=== PATIENT | female | born 1970 | race Caucasian/White ===

== ENCOUNTER → 2016-08-14 | Outpatient (CLI) | payer BC, MEDICARE, MEDICAID ==
[~2016-08-14] MED LIST: ASPI1TAB69 PO; CEFD300C PO; CHOL1CAP14 PO; GLUCTAB PO; LEXA10TA PO; METF1000 PO; OMEG100010 PO; OMEGCAP21 PO; PERC5TAB12 PO; PRAV40TA2 PO
[2016-08-14 11:32] LABS: BACTERIA, URINE OCC /hpf; BLOOD, URINE NEG (NEG); GLUCOSE,URINE NEG (NEG); KETONE, URINE NEG (NEG); NITRITE,URINE NEG (NEG); PH, URINE 6.5 (5.0-8.5); SQUAMOUS EPITHELIAL CELL URINE 1 /hpf (0-5); URINE COLOR LIGHT-YELLOW (YELLW/STRAW)
[2016-08-14 11:35] LABS: HEMATOCRIT 46.2 % (35.0-46.0); MEAN CELL VOLUME 88.5 FL (80.0-100.0); MEAN CORPUSCULAR HEMOGLOBIN 29.7 PG (27.0-34.0); MEAN CORPUSCULAR HGB CONC 33.5 % (32.0-36.0); PLATELET COUNT 235 TH/MM3 (150-450); RED BLOOD COUNT 5.23 MIL/MM3 (4.00-5.30); RED CELL DISTRIBUTION WIDTH 13.4 % (11.6-17.2); REVIEW FLAG FINAL; WHITE BLOOD COUNT 9.8 TH/MM3 (4.0-11.0)
[2016-08-14 12:09] LABS: BICARBONATE 28.3 MEQ/L (21.0-32.0)
--- NOTE | 2016-08-15 22:00 | EKG ---
Date Performed: 08/14/2016 Time Performed: 10:27:49 PTAGE: 45 years EKG: Sinus rhythm NORMAL ECG NO PREVIOUS TRACING DOCTOR: Kareem Holden Interpretating Date/Time 08/15/2016 22:00:01
== END ==
LOC: CPRE 09:55
PROVIDERS: ATTEND Plastic Surgery
DX: Z01.810 Encounter for preprocedural cardiovascular examination (principal); Z01.812 Encounter for preprocedural laboratory examination; L73.2 Hidradenitis suppurativa
CPT/HCPCS: 36415; 80051; 81001; 85027; 93005

== ENCOUNTER → 2016-08-20 | Day surgery (SDC) | payer BC, OTHER ==
--- NOTE | 2016-08-19 17:00 | MH ---
cc: JEANIE THAKUR DATE OF ADMISSION: 08/20/2016 DATE OF 1970 CHIEF COMPLAINT Left axillary and left inguinal new areas of hidradenitis patient desiring elective excision. HISTORY This is a 45-year-old white female who has chronic hidradenitis involving multiple body areas; both axilla, both groin, partly. Perineum, etc. she has undergone multiple surgeries over past several years starting back in 2011 with me and prior to that she also had other surgeries. Most of the areas have healed well. Currently she has multiple small active areas involving the left axilla and groin for a few months and she is now ready to go ahead with the further surgery. She understands the overall process very well. Having done it several times already, she is prepared to accept the possibility of open wounds or poor wound healing after the surgery and to treat the areas with secondary wound care if needed. She also understands the possibility of general risk and complications such as those from the anesthesia. The deep venous thrombosis in the legs, respiratory issues, etc. from anesthesia and from surgical site active bleeding, infection, need for multiple surgeries and damage to the surrounding tissues and structures in the area of surgery including numbness to the surrounding skin or genital region. The patient is moderately overweight. She has a history of the diabetes gestational but no active diabetes. No history of high blood pressure or cardiac problems. No major ongoing medical problems. PAST SURGICAL HISTORY: history of surgery include; the multiple surgeries for the hidradenitis. She also had a bleeding, intestinal polyp removed in the past. The patient does not have any chronic issues with lymph nodes or skin rashes or any main deficiency problems. CURRENT MEDICATIONS: 1. Metformin for type 2 diabetes. 2. Lexapro for depression. 3. in the past. 4. Fish oil 5. Vitamins. REVIEW OF SYSTEMS review of systems is otherwise negative for any to change of health. Her weight is in the 200 pound range, she is 5 feet 1 inch tall. PHYSICAL EXAMINATION: VITAL SIGNS: Examination shows a 45-year-old white female with stable vital signs. IN GENERAL: The patient is alert, cooperative, fully oriented. She is emotionally stable, ambulates by herslef. HEAD/NECK: Shows clear sclerae, the trachea is in midline. No gross thyromegaly. CHEST: Chest has good expansion with normal breathing normal breath sounds. HEART: Normal heart sounds. No murmurs. EXTREMITIES: The upper and lower extremities are grossly intact. There is no lymphedema or significant varicose problems in the lower extremities. BREASTS: The breasts were not examined. DIRECTED EXAMINATION: Local examination of the axilla and the groin area show on the left side small active draining glands with small amount of purulent discharge and moderate inflammation overall the areas are somewhat in a linear configuration and there may be able to be excised by combining them all in a single excision and local advancement closure may be attempted. The patient understands that near the groin crease in particular. Normal daily hygiene and movement may subject the area to wound dehiscence. The Genitals are otherwise normal. The perineal and perianal area are also clean. IMPRESSION/PLAN: clinical impression is chronic hidradenitis with acute flare-up on the left axilla and left groin plan is to excise the areas completely and provide local closure with local advancement if possible, otherwise leave the wounds open to secondary healing. signed, not fully reviewed MD NEGRO Mcconnell/aislinn /4:29 PM /4:48 PM MTDAndra
[~2016-08-20] VITALS: Ht 154.9 cm; Wt 83.4 kg
[~2016-08-20] MED LIST changes: +*HYDROmorphone PF 1 MG VIAL PERIprocedural Use ONLY ONE; +ACETAMINOPHEN/HYDROcodone 325 MG/7.5 MG TAB ONE; +ACETAMINOPHEN/HYDROcodone 325 MG/7.5 MG TAB PO ONE; +BACITRACIN TOP OINT 15 GM TUBE ONE; +CHLORHEXIDINE GLUCONATE 2 % 1 PACK (2 CLOTHS) TOPICAL PRN; +DEXAMETHASONE SOD PHOS 4 MG/ML VIAL ONE; +FAMOTIDINE 20 MG/2 ML VIAL ONE; -GLUCTAB PO; +HYDROmorphone HCL PF 1 MG/ML VIAL IV PRN; +INSULIN HUMAN REGULAR 1,000 UNITS/10 ML VIAL SQ PRN; +LACTATED RINGER'S 1000 ML IV PRN; -LEXA10TA PO; +LIDOCAINE 1%/EPINEPHrine 1:100,000 SOLN 50 ML VIAL ONE; +METOPROLOL TARTRATE 25 MG TAB PO PRN; +MIDAZOLAM HCL 2 MG/2 ML VIAL ONE; -OMEGCAP21 PO; +ONDANSETRON HCL 4 MG/2 ML VIAL IV PUSH ONE; -PERC5TAB12 PO; +POVIDONE IODINE 5% (ANTISEPSIS KIT) 4 APPLICATIONS EACH NARE PRN; +PROPOFOL 200 MG/20 ML AMP IV ONE; +SODIUM CHLORID 0.9% 500 ML IV PRN; +oxyCODONE/ACETAMINOPHEN 7.5 MG/325 MG TAB PO PRN
[2016-08-20 09:14] VITALS: BP 132/80; PULSE 80; RESP 20; TEMP 98.2; O2SAT 97
[2016-08-20 13:33] VITALS: BP 150/88; PULSE 80; RESP 18; TEMP 98; O2SAT 98
--- NOTE | 2016-08-21 22:15 | MP ---
cc: JEANIE SHULTZ DATE OF SURGERY 08/20/16 PREOPERATIVE DIAGNOSES Multiple hidradenitis, active areas on the left axilla, left groin and suprapubic. POSTOPERATIVE DIAGNOSIS Multiple hidradenitis, active areas on the left axilla, left groin and suprapubic. OPERATION Excision multiple hidradenitis area left axilla, groin and suprapubic. SURGEON Dr. Shultz ANESTHESIA General. INDICATIONS A 45-year-old white female with chronic hidradenitis, multiple previous surgeries, multiple areas of surgeries, most of them have healed. Recurrent areas include left axilla and approximately 5 new spots both on the arm side and on the chest wall side. The original surgical scar is actually well-healed. The left groin shows one area close to the junction of the previous inguinal crease and one on the side of the left labia. They are small multiple areas that can be excised in one confluent excision. The one on the suprapubic mons area is in the crease within the mons area. Again, this one is the most active area with some purulence. The patient understands that pros, cons, risks and complications and is willing to go ahead with the surgery. PROCEDURE The patient was brought to the operating room, supine position. Anesthesia was induced. Prep and drape was done. A time-out was called and completed. The antibiotics are not given because the patient is allergic to most of the common antibiotics. The areas were outlined and injected with tumescent mixture of lidocaine with epi and saline. They were excised directly to the underlying normal fat. Hemostasis was completed. Closure was done loosely with inverting Vicryl sutures. The areas near the labia and the groin were only sutured internally, once in the axilla, it was sutured both with Vicryl and Prolene. Intraoperative blood loss minimal, less than 10 cc. Sterile dressing was applied. The patient remained stable. No complications. signed, not fully reviewed MD NEGRO Mcconnell/FANNY /12:40 PM /9:51 PM [facility]
== END | disposition home or self-care (01) ==
LOC: HSDC 08:26
PROVIDERS: ATTEND Plastic Surgery
DX: L73.2 Hidradenitis suppurativa (principal); E11.9 Type 2 diabetes mellitus without complications; F32.9 Major depressive disorder, single episode, unspecified; E78.5 Hyperlipidemia, unspecified; E66.9 Obesity, unspecified; F17.200 Nicotine dependence, unspecified, uncomplicated; Z79.84 Long term (current) use of oral hypoglycemic drugs; Z88.1 Allergy status to other antibiotic agents; Z68.34 Body mass index [BMI] 34.0-34.9, adult
CPT/HCPCS: 11450; 11462; 11470; 88305; J1100; J1170; J2250; J2405; J3010; J7120; 88307